=== PATIENT | male | born 1955 | race Native Hawaiian/Other Pacific Islander ===

== ENCOUNTER 2016-03-23 13:35 | Emergency (ER) | payer BC, OTHER ==
[2016-03-23 13:59] VITALS: TEMP 97.3
--- NOTE | 2016-03-23 14:20 | ED.PDOC ---
History of Present Illness - General Chief Complaint: Cardiovascular Problem Stated Complaint: elevated BP Time Seen by Provider: 03/23/16 14:19 Source: patient, RN notes reviewed, Vital Signs reviewed, family - Exam Limitations: no limitations - History of Present Illness Initial Comments: Mr. Brianne Vale 60 y/o male with history of high blood pressure seen today because of persistently elevated blood pressure for one week has headache ( tightness) but no chest pain blurry vision had pituitary tumor removed in 2014, history of chf with pacemaker placement in 2010 stating had EF-20%but recent echo-45%. Timing/Duration: other - one week had quit taking lasix for almost a month Severity: moderate Improving Factors: nothing Worsening Factors: nothing Associated Symptoms: shortness of breath, other - dizziness Allergies/Adverse Reactions: Allergies NO KNOWN ALLERGY Allergy (Verified 03/23/16 14:00) Home Medications: Ambulatory Orders Carvedilol 25 mg PO BID 03/23/16 Furosemide 40 mg PO DAILY PRN 03/23/16 Losartan Potassium 50 mg PO DAILY 03/23/16 Review of Systems - Review of Systems Constitutional: States: no symptoms reported EENTM: States: no symptoms reported Respiratory: States: short of breath Cardiology: States: no symptoms reported Gastrointestinal/Abdominal: States: no symptoms reported Genitourinary: States: no symptoms reported Musculoskeletal: States: no symptoms reported Skin: States: no symptoms reported Neurological: States: see HPI Endocrine: States: no symptoms reported Hematologic/Lymphatic: States: no symptoms reported Past Medical History (General) - Patient Medical History Hx Stroke: No Hx Congestive Heart Failure: Yes Hx Hypertension: Yes Hx Renal Disease: No - Hx kidney stones x 3 Surgical History: cholecystectomy Other Surgeries:: pacamaker placement,pituitary tumor excision-2014 - Vaccination History Hx Influenza Vaccination: No Hx Pneumococcal Vaccination: No - Social History Hx Tobacco Use: Yes - Quit - Activities of Daily Living Patient Lives Alone: No - family Grooming Ability: Independent Eating (Feeding) Ability: Independent Toileting Ability: Independent Family Medical History - Family History Father Living Status: Age at (years of age): 41 Cause of : ALS Physical Exam - Physical Exam General Appearance: Alert, No apparent distress Eye Exam: bilateral normal Ears, Nose, Throat: hearing grossly normal, normal ENT inspection, normal pharynx Neck: non-tender, full range of motion, supple, normal inspection Respiratory: chest non-tender, lungs clear, normal breath sounds, no respiratory distress Cardiovascular/Chest: normal peripheral pulses, regular rate, rhythm, no edema, no gallop Peripheral Pulses: radial,right: 2+, radial,left: 2+ Gastrointestinal/Abdominal: normal bowel sounds, non tender, soft, no organomegaly, no pulsatile mass Back Exam: normal inspection, no CVA tenderness, no vertebral tenderness Extremity: normal range of motion, non-tender, normal inspection, no pedal edema Neurologic: no motor/sensory deficits, alert, normal mood/affect, oriented x 3 Skin Exam: normal color, warm/dry Lymphatic: no adenopathy Progress - Results/Orders Results/Orders: 03/23/16 14:20 URINALYSIS Stat 03/23/16 14:30 Bumetanide Inj [Bumex Injection] 1 mg IV DAILY 03/23/16 14:39 B-TYPE NATRIURETIC PEPTIDE/BNP Stat CARDIAC PANEL,ER Stat HEPATIC FUNCTION PANEL Stat Laboratory Results WBC 8.2 K/mm3 (4.8-10.8) 03/23/16 14:39 RBC 5.73 M/mm3 (4.70-6.10) 03/23/16 14:39 Hgb 16.7 gm/dL (14.0-18.0) 03/23/16 14:39 Hct 50.4 % (42.0-52.0) 03/23/16 14:39 MCV 88.1 fl (80.0-94.0) 03/23/16 14:39 MCH 29.2 pg (27.0-31.0) 03/23/16 14:39 MCHC 33.2 g/dL (33.0-37.0) 03/23/16 14:39 RDW 15.3 % (11.5-14.5) H 03/23/16 14:39 Plt Count 134 K/mm3 (130-400) 03/23/16 14:39 MPV 9.9 fl (7.40-10.4) 03/23/16 14:39 Absolute Neuts (auto) 5.20 K/uL (1.8-6.8) 03/23/16 14:39 Absolute Lymphs (auto) 2.00 K/uL (1.0-3.4) 03/23/16 14:39 Absolute Monos (auto) 0.80 K/uL (0.2-0.8) 03/23/16 14:39 Absolute Eos (auto) 0.10 K/uL (0.0-0.4) 03/23/16 14:39 Absolute Basos (auto) 0.10 K/uL (0.0-0.1) 03/23/16 14:39 Neutrophils % 63.3 % (42.0-78.0) 03/23/16 14:39 Lymphocytes % 25.0 % (20.0-50.0) 03/23/16 14:39 Monocytes % 9.4 % (2.0-9.0) H 03/23/16 14:39 Eosinophils % 1.5 % (1.0-5.0) 03/23/16 14:39 Basophils % 0.8 % (0.0-2.0) 03/23/16 14:39 Differential Comment Cancelled 03/23/16 14:39 RBC Morphology Cancelled 03/23/16 14:39 PT 11.5 SECONDS (9.4-12.5) 03/23/16 14:39 INR 1.020 03/23/16 14:39 PTT (SP) 34.1 SECONDS (25.1-36.5) 03/23/16 14:39 Sodium 139 mmol/L (135-145) 03/23/16 14:39 Potassium 4.0 mmol/L (3.6-5.0) 03/23/16 14:39 Chloride 104 mmol/L (101-111) 03/23/16 14:39 Carbon Dioxide 29 mmol/L (21-31) 03/23/16 14:39 Anion Gap 10.0 (12-18) L 03/23/16 14:39 BUN 13 mg/dL (7-18) 03/23/16 14:39 Creatinine 0.97 mg/dL (0.6-1.3) 03/23/16 14:39 BUN/Creatinine Ratio 13.4 (10-20) 03/23/16 14:39 Random Glucose 100 mg/dL (70-105) 03/23/16 14:39 Serum Osmolality 277.7 mOsm/L (275-295) 03/23/16 14:39 Calcium 9.4 mg/dL (8.4-10.2) 03/23/16 14:39 Magnesium 1.9 mg/dL (1.8-2.5) 03/23/16 14:39 Total Bilirubin 0.8 mg/dL (0.2-1.0) 03/23/16 14:39 AST 20 IU/L (10-42) 03/23/16 14:39 ALT 25 IU/L (10-60) 03/23/16 14:39 Alkaline Phosphatase 50 IU/L (42-121) 03/23/16 14:39 Creatine Kinase 68 IU/L (38-174) 03/23/16 14:39 CK-MB (CK-2) 1.5 ng/mL (0.0-4.4) 03/23/16 14:39 CK-MB (CK-2) % Not Reportable 03/23/16 14:39 Troponin I < 0.02 ng/mL (0.01-0.05) 03/23/16 14:39 B-Natriuretic Peptide 131.0 pg/ml (0-100) H 03/23/16 14:39 Serum Total Protein 7.1 gm/dL (6.4-8.2) 03/23/16 14:39 Albumin 4.1 g/dl (3.2-5.5) 03/23/16 14:39 Globulin Cancelled 03/23/16 14:39 Albumin/Globulin Ratio Cancelled 03/23/16 14:39 Vital Signs Temp 97.3 F L 03/23/16 13:50 Pulse 69 03/23/16 13:50 Resp 18 03/23/16 13:50 BP 157/102 03/23/16 13:50 Pulse Ox 97 03/23/16 13:50 Intake & Output 03/22/16 03/23/16 03/23/16 18:59 06:59 18:59 Weight 230 lb 03/23/16 13:50 Temperature 97.3 F L Pulse Rate [ 69 Left] Respiratory 18 Rate Blood Pressure 157/102 [Left Arm] O2 Sat by Pulse 97 Oximetry Vital Signs 03/23/16 13:50 Temperature 97.3 F L Pulse Rate [ 69 Left] Respiratory 18 Rate Blood Pressure 157/102 [Left Arm] O2 Sat by Pulse 97 Oximetry chest x ray-borderline cardiomegaly no heart failure - EKG/XRAY/CT EKG: nonspecific ST T wave Chg Comments: pacemaker rhythm Departure - Departure Clinical Impression: Poor high blood pressure control, History of chronic CHF, Cardiomyopathy due to hypertension, with heart failure Time of Disposition: 16:22 Disposition: Discharge to Home or Self Care Condition: Good Departure Forms: ED Discharge - Pt. Copy, Patient Portal Self Enrollment Referrals: Donald Franz MD [Primary Care Provider] - 1-2 Weeks Home Medications: Ambulatory Orders Carvedilol 25 mg PO BID 03/23/16 Furosemide 40 mg PO DAILY PRN 03/23/16 Losartan Potassium 50 mg PO DAILY 03/23/16 Additional Instructions: Increase dose of losartan 100 mg at bedtime;RETURN TO EMERGENCY ROOM NEEDED.Need to continue with lasix as directed;Keep appointment with primary md next week.
[2016-03-23] MEDS ORDERED: BUMETANIDE 0.25 MG/ML VIAL IV SCH (14:30)
--- NOTE | 2016-03-23 15:04 | RAD ---
EXAM DESCRIPTION: XR CHEST 1 VIEW CLINICAL HISTORY: sob COMPARISON: None available FINDINGS: A multi lead cardiac pacemaker is present. The heart is at the upper limits of normal size for AP technique. Mediastinal contours are otherwise unremarkable period there is mild elevation of the left hemidiaphragm, questionable acuity period no airspace consolidation or pleural effusion period There is no pneumothorax or acute fracture. IMPRESSION: Cardiac pacemaker and borderline cardiomegaly without failure or other acute intrathoracic abnormality. Mild elevation of the left hemidiaphragm, nonspecific and of uncertain acuity. The patient has an older chest radiograph, comparison would be helpful. Alternatively, chest CT could be performed for further evaluation. Electronically signed by: Bhavesh Burdick DO 03/23/2016 15:03
[2016-03-23 16:48] VITALS: BP 172/97; O2SAT 97
== END 2016-03-23 16:30 | disposition home or self-care (01) ==
LOC: ER 13:35
DX: I11.0 Hypertensive heart disease with heart failure (principal); I50.9 Heart failure, unspecified; Z95.0 Presence of cardiac pacemaker; Z87.891 Personal history of nicotine dependence; Z79.899 Other long term (current) drug therapy
CPT/HCPCS: 36415; 71010; 80048; 80076; 82550; 82553; 83880; 84484; 85025; 85610; 85730; 93005; J3490

== ENCOUNTER → 2016-03-29 | Outpatient (CLI) | payer BC | END | disposition home or self-care (01) | LOC: GMAM 11:30 | PROVIDERS: ATTEND Family Medicine | DX: R35.0 Frequency of micturition (principal) ==

== ENCOUNTER → 2016-10-13 | Outpatient (CLI) | payer BC | END | disposition home or self-care (01) | LOC: GMA 10:34 | PROVIDERS: ATTEND Physician Assistant | DX: R22.1 Localized swelling, mass and lump, neck (principal) ==

== ENCOUNTER 2016-11-10 05:49 | Observation (INO) | payer BC ==
[2016-11-10] MEDS ORDERED: ASPIRIN TABLET 325 MG TAB PO ONE (06:16)
[2016-11-10] MEDS ORDERED: SODIUM CHLORIDE 0.9% 100ML 100 ML IVPB ONE (06:17)
[2016-11-10] MEDS ORDERED: diltiaZEM DRIP 125 MG/25 ML VIAL IVPB ONE ×2 (06:17→06:19)
[2016-11-10] MEDS ORDERED: niCARdipine HCL 2.5 MG/ML AMP IVPB ONE (06:17)
[2016-11-10] MEDS ORDERED: diltiaZEM DRIP 125 MG in SODIUM CHLORIDE 0.9% 100ML 100 ML IVPB SCH (06:20)
[2016-11-10] MEDS ORDERED: CARVEDILOL 12.5 MG TAB PO ONE (06:20)
[2016-11-10] MEDS ORDERED: ETOMIDATE INJECTION 2 MG/ML 20ML VIAL IV ONE ×2 (06:47→06:52)
--- NOTE | 2016-11-10 06:56 | RAD ---
EXAM: Single view chest. INDICATION: Shortness of breath. COMPARISON: Chest x-ray: 03/23/2016. FINDINGS: Cardiac silhouette: Enlarged with a left chest wall pacemaker/AICD in place Tori: Unremarkable. Lobar consolidation: None. Pleural effusion: None. Pneumothorax: None. Other: None. Bones: Unremarkable. Other: None. IMPRESSION: 1. No acute cardiopulmonary process. Electronically signed by: Corbin Gomez MD 11/10/2016 6:54 AM CDT Workstation: [id number]
--- NOTE | 2016-11-10 07:12 | ED.PDOC ---
History of Present Illness - General Chief Complaint: Chest Pain/IL Stated Complaint: nausea, chest pain Time Seen by Provider: 11/10/16 06:06 Source: patient Exam Limitations: no limitations - History of Present Illness Initial Comments: the patient is a 61-year-old male presenting to the emergency room secondary to waking up this morning and feeling dizzy along with having palpitations in his chest. He has not had this sensation before. He did have some very mild chest pain intermittently. He is not having chest pain upon arrival here. He is pale and mildly diaphoretic. Telemetry monitoring shows atrial fibrillation with a rate ranging from 125-148 bpm. His pulse however ranges from 70-110. He is mildly hypotensive with systolics ranging from 90- 105. He reports that he took in extra caffeine and sugar last night for some reason. He denies any drug use. No syncope but he did have near syncope with the event this morning. It started when he got up to go use the bathroom. He does take Coreg on a twice-daily basis. He does apparently have some form of a pituitary tumor which she takes medications for. He does have a pacemaker that appears to sense a truly and paced ventricularly. EKG in comparison to previous EKG from 7 months ago shows a wider QRS complex. He does still appear to be a ventricularly paced beat according to what looks like pacers spikes and anterior and inferior leads. Difficult to assess otherwise. There is definitely left axis deviation. Timing/Duration: 1-3 hours Severity: severe Improving Factors: immobilization, rest Worsening Factors: movement Associated Symptoms: chest pain, loss of appetite, malaise, shortness of breath , weakness Allergies/Adverse Reactions: Allergies NO KNOWN ALLERGY Allergy (Verified 03/23/16 14:00) Home Medications: Ambulatory Orders Carvedilol 25 mg PO BID 03/23/16 Furosemide 40 mg PO DAILY PRN 03/23/16 Losartan Potassium 50 mg PO DAILY 03/23/16 Review of Systems - Review of Systems Constitutional: States: diaphoresis, malaise, weakness EENTM: States: blurred vision - rimarily when he goes to stand up Respiratory: States: short of breath - with any activity Cardiology: States: palpitations, syncope - ear syncope but he has not passed out Gastrointestinal/Abdominal: States: no symptoms reported Genitourinary: States: no symptoms reported Musculoskeletal: States: no symptoms reported Skin: States: no symptoms reported Neurological: States: anxiety, headache - mild when he goes to stand up, weakness - eneralized with movement Endocrine: States: see HPI All other Systems: No Change from Baseline Past Medical History (General) - Patient Medical History Hx Stroke: No Hx Cardiac Disorders: Yes Hx Congestive Heart Failure: Yes Hx Hypertension: Yes Hx Renal Disease: Yes - Hx kidney stones x 3 Hx Cancer: Yes - pituitary tumor Surgical History: cholecystectomy, pacemaker, other - Vaccination History Hx Influenza Vaccination: No Hx Pneumococcal Vaccination: No - Social History Hx Tobacco Use: Yes - Quit Hx Alcohol Use: No Family Medical History - Family History Father Living Status: Age at (years of age): 41 Cause of : ALS Physical Exam - Physical Exam General Appearance: Alert, Ill Appearing - he is pale and weak. He is diaphoretic. He is anxious. Eye Exam: bilateral normal Ears, Nose, Throat: hearing grossly normal, normal ENT inspection, normal pharynx Neck: full range of motion, supple Respiratory: chest non-tender, lungs clear, normal breath sounds, no respiratory distress, no accessory muscle use Cardiovascular/Chest: no edema, tachycardia, irregularly irregular, other - the patient's actual functional pulse varies significantly. At times the patient has a strong pulse only about 40 bpm with variable thready pulses additionally 50-70 times more per minute Peripheral Pulses: radial,right: 2+, radial,left: 2+, dorsalis pedis,right: 2+, dorsalis pedis,left: 2+, posterior tibialis,right: 2+, posterior tibialis,left: 2+ Gastrointestinal/Abdominal: non tender, soft Rectal Exam: deferred Back Exam: normal inspection, no CVA tenderness Extremity: normal range of motion, non-tender, normal inspection, no pedal edema , normal capillary refill Neurologic: registered nurse ambulatory II-XII nml as tested, no motor/sensory deficits, alert, normal mood/affect, oriented x 3 Skin Exam: diaphoresis, pallor Comments: Vital Signs - 24 hr 11/10/16 11/10/16 06:12 06:33 Temperature 97.9 F Pulse Rate 133 H Pulse Rate [ 133 H left] Respiratory 22 Rate Blood Pressure 115/50 [left] O2 Sat by Pulse 100 100 Oximetry Progress - Progress Progress: 11/10/16 07:14 the patient is a 61-year-old male presenting to the emergency room secondary to feeling of palpitations along with near syncope. This is of short duration of less than 3 hours. The patient has atrial fibrillation which was electrically a rapid ventricular rate but ultimately poor perfusion. we did make an attempt with diltiazem to try and slow down the electrical impulse to improve perfusion with each beat however this ultimately only lead to another 5 point drop in his systolic blood pressure. Decision was made to cardiovert the patient. The patient agreed to this. We had originally planned on waiting until lab work was back to make sure there were no other correctable issues that needed to be dealt with however given his poor perfusion were forced to proceed prior to that. Risks and benefits were explained and the patient did agree to proceed. 10 mg of etomidate was initially given and the patient was shocked with 30 J which failed to cardiovert him. This was followed by a shock at 70 J which also further failed to cardiovert him. 5 more milligrams of etomidate was givenand he was shocked one more time at 150 J which did ultimately cardiovert the patient back into a normal sinus rhythm at a rate of about 70 bpm with a atrial sensed and ventricularly paced beat. respiratory therapy was present. The patient did receive supplemental oxygen during the procedure. He has tolerated the procedure well. Blood pressures have significantly improved. His displayed electrical cardiac activity now matches his pulse. He is feeling better. 11/10/16 08:04 the patient seems to be doing well after cardioversion. I have talked with his ice cream man Dr. lira, who has recommended anticoagulation in the form of xarelto 20 mg by mouth daily at bedtime. As long as he continues to do well, he will follow him up here in a couple of weeks. The patient is to continue his Coreg. The patient will be admitted for the next 24 hours of monitoring to make sure he does not revert to A. fib with RVR. Source of this episode is uncertain at this time. Initial heart enzymes proximally 3 hours after the onset of symptoms are negative. Of note, the patient's creatinine is increased from his baseline. This is possibly related to the hypotension from the arrhythmia. It does need to be monitored. If it does not improve, then medication adjustments may need to be made. Cardizem drip has been discontinued. Aspirin will be discontinued in light of the xarelto. the patient will of course need further repeat cardiac enzymes. Admit for further monitoring and care. critical care time spent on not otherwise billable procedures 40 minutes. 11/10/16 08:08 - Results/Orders Results/Orders: Laboratory Tests 11/10/16 11/10/16 11/10/16 06:05 06:05 06:05 WBC 7.6 RBC 6.02 Hgb 17.9 Hct 52.5 H MCV 87.3 MCH 29.7 MCHC 34.1 RDW 14.4 Plt Count 187 MPV 10.0 Absolute Neuts (auto) 4.30 Absolute Lymphs (auto) 2.60 Absolute Monos (auto) 0.50 Absolute Eos (auto) 0.10 Absolute Basos (auto) 0.10 Neutrophils % 56.0 Lymphocytes % 34.6 Monocytes % 6.9 Eosinophils % 1.1 Basophils % 1.4 PT 10.7 INR 0.950 PTT (SP) 34.3 D-Dimer, Quantitative < 200 Sodium 139 Potassium 3.8 Chloride 105 Carbon Dioxide 22 Anion Gap 15.8 BUN 18 Creatinine 1.50 H BUN/Creatinine Ratio 12.0 Random Glucose 160 H Serum Osmolality 282.9 Calcium 9.5 Magnesium 2.0 Total Bilirubin 1.6 H AST 23 ALT 31 Alkaline Phosphatase 54 Creatine Kinase 78 CK-MB (CK-2) 2.1 CK-MB (CK-2) % Not Reportable Troponin I 0.02 B-Natriuretic Peptide 95.8 Serum Total Protein 6.9 Albumin 4.3 Globulin 2.6 Albumin/Globulin Ratio 1.7 TSH 6.14 H chest x-ray today shows cardiomegaly but no other evidence of any acute pathology. Initial EKG shows A. fib with RVR with widening of the QRS complex and what appears to be a paced ventricular beats is likely atrial sensed. Difficult to assess otherwise. Of note the rate on the EKG is 141 bpm but his pulse at that time was around 100. Initial EKG after cardioversion shows some inverted T waves in lead 3 as well as V1. There is also deep Q waves in lead 2 as well as Q waves in aVF. These have not been noted before. This is now in normal sinus rhythm with subsequent ventricular pacing. Repeat EKG 30 minutes after this one shows a correction of abnormalities in leads 2 and aVF. This EKG looks much more consistent with the EKG from March 2016. There does however possibly appear to show a right bundle branch block that was not present prior. Departure - Departure Clinical Impression: New onset a-fib Hypotension Qualifiers: Hypotension type: unspecified hypotension type Qualified Code(s): I95.9 - Hypotension, unspecified Disposition: Admit Patient Referrals: Donald Franz MD [Primary Care Provider] - 1-2 Weeks Home Medications: Ambulatory Orders Carvedilol 25 mg PO BID 03/23/16 Furosemide 40 mg PO DAILY PRN 03/23/16 Losartan Potassium 50 mg PO DAILY 03/23/16 Decision To Admit - Decistion To Admit Decision to Admit Reason: Medical Nature Decision to Admit Date: 11/10/16 Decision to Admit Time: 08:09
[2016-11-10] MEDS ORDERED: SODIUM CHLORIDE 0.9% 1000ML 500 ML IVS ONE (07:23)
[2016-11-10] MEDS ORDERED: RIVAROXABAN 10 MG TAB PO ONE (08:01)
--- NOTE | 2016-11-10 09:05 | HP ---
SUPERVISING PHYSICIAN: Donald Franz M.D. CHIEF COMPLAINT: Chest pain, dizziness and nausea. HISTORY OF PRESENT ILLNESS: Mr. Vale is a 61 year-old male patient that presented to the Emergency Room secondary to being awakened this morning and feeling dizzy along with some palpitations in his chest. He has noted that he has had some very mild chest pains intermittently in the past and upon arrival noted he was not having any chest pains. He was noted to be mildly pale and diaphoretic, and when placed on telemetry showed that he has atrial fibrillation with a ventricular rate between 125 and 148. He was also found to be mildly hypotensive with a systolic ranging from 90 to 105. He denied any syncopal episodes or presyncopal episodes with the onset of the chest pains. He said it started when he got up to go to the bathroom this morning. He does take Coreg and he has a pacemaker defibrillator in place. His EKG on arrival showed that he was in atrial fibrillation. Given the new onset initially he was placed on a Cardizem drip without any results, therefore given that he was hypotensive and unstable he agreed to cardioversion electrically which was performed by Chula Ruano. physician. He received 3 separate shocks, one at 30 joules, 70 joules and then finally at 150 joules after he was given 5 mg of Etomidate. He did convert into a normal sinus rhythm at a rate of 70 which was ventricularly paced. The patient was then placed in observation for continued cardiac monitoring and monitoring of cardiac serial enzymes. Initial cardiac enzymes were negative for acute changes with troponin being 0.02. He did have an elevated TSH at 6.14, otherwise other laboratory values were unremarkable. As noted on the comparison of EKG after cardioversion that his EKG looked consistent with EKG compared to 2017 in March, although it appeared he has developed a right bundle branch block. The patient was placed in Observation in stable condition. PAST MEDICAL HISTORY: 1. Congestive heart failure diagnosed in 2010 with last echocardiogram in September 2015 showing an ejection fraction of 45%, etiology nonischemic cardiomyopathy. 2. Hypertension. 3. Pituitary tumor removed in 2014 after being treated medically. 4. Multiple kidney stones. PAST SURGICAL HISTORY: 1. Cholecystectomy in 2009. 2. Pituitary tumor removed in 2014. 3. Pacemaker placement in 2010. CURRENT MEDICATIONS: 1. Arimidex 1 mg daily. 2. Vitamin D3 2,000 units daily. 3. Multivitamin with minerals 1 tablet daily. 4. Entresto 49/51 mg 1 tablet at bedtime. 5. Cabergoline 0.5 mg Monday, Monday and Monday at bedtime and then again 1 mg , Monday and Monday at bedtime. 6. Carvedilol 25 mg twice daily. ALLERGIES: NO KNOWN DRUG ALLERGIES. FAMILY HISTORY: Positive for ALS. Father at age 41 secondary to complications. SOCIAL HISTORY: The patient is a retired real estate financial analyst and currently lives at [facility] with his . He does have a history of smoking approximately 1/2 pack a day, but quit in 2014. He also has been using smokeless tobacco. He denies any alcohol or illicit drug use. REVIEW OF SYSTEMS: CONSTITUTIONAL: Prior to admission to the Medical/Surgical floor it was noted he was diaphoretic, general malaise and weakness. HEENT: Noted some blurred vision while he was having a rapid heart rate, mainly noted when standing. RESPIRATORY: As noted in history of present illness, some shortness of breath with a history of congestive heart failure. CARDIOVASCULAR: Palpitations and near syncopal episode as noted in History of Present Illness, but no true syncopal episodes noted. GASTROINTESTINAL: No diarrhea, constipation, abdominal pains, nausea or vomiting. NEUROLOGIC: Notes he gets a headache sometimes when he stands up. Generalized weakness with movement, most recently with the rapid heart rate. He does have a history of some anxiety and some headaches. ENDOCRINE: As noted in the History of Present Illness, previous pituitary tumor removal. PHYSICAL EXAMINATION: VITAL SIGNS: Initially in the Emergency Room he was showing to be in atrial fibrillation on the monitor with a heart rate of 133, post conversion and admission to the Medical/Surgical floor heart rate was in the 70s. Initially his blood pressure prior to cardioversion was somewhat hypotensive with the lowest noted to be 84/33, at time of admission to the Medical/Surgical floor blood pressure was 108/57. He was satting 97% on room air with respirations of 16. He was afebrile. Temperature was 97.9. GENERAL: On admission to the Medical/Surgical floor, the patient appeared to be in no acute distress, alert, resting comfortably. HEENT: Tympanic membranes are clear bilaterally. Oropharynx was pink and moist without any lesions. NECK: Supple, non-tender with full range of motion. No jugular venous distention. CHEST: Lungs were clear to auscultation bilaterally without any rhonchi, wheezing or rales. CARDIOVASCULAR: Regular rate and rhythm with a paced rhythm on monitor noted with no gallops or rubs or murmurs noted. ABDOMEN: Soft, non-tender with positive bowel sounds. EXTREMITIES: No clubbing, cyanosis or edema. NEUROLOGIC: He is alert and oriented times three. Facial features were symmetrical. Extraocular movements are within normal limits. Cranial nerves II -XII are grossly intact. SKIN: Dry and pink. LABORATORY: White count on admission showed to be within normal limits with white count of 7.6, hemoglobin 17.9, hematocrit 52.5. PT, PTT and D-dimer were all normal. Chemistries showed normal electrolytes with potassium 3.8, magnesium was normal at 2.0, creatinine was slightly elevated at 1.5, BUN was normal at 18. Initial cardiac enzymes showed troponin less than 0.02. Liver functions all showed to be within normal limits. Toxicology screen showed Valproic acid was less than 0.1. Urinalysis is pending. RADIOLOGY: Chest x-ray in the Emergency Department prior to admission on a single view chest per radiology interpretation showed no acute cardiopulmonary processes noted. EKG prior to cardioversion showed atrial fibrillation with rapid ventricular response between 125 and 148, post conversion was showing a paced ventricular rhythm 100% at 70. ASSESSMENT: 1. New onset of atrial fibrillation with rapid ventricular response, unknown etiology requiring electrical cardioversion with the patient converted to a normal sinus rhythm. 2. Hypertension. 3. History of pituitary tumor with removal. 4. History of congestive heart failure, chronic secondary to nonischemic cardiomyopathy with the last ejection fraction noted to be in 09/2015 with an ejection fraction of 45%. 5. Elevated TSH level but no history of hypothyroidism. PLAN: The patient will be placed in Observation tonight for continued cardiac monitoring with serial enzymes every 6 hours. He was started on aspirin in the Emergency Department as well as started on Xarelto after talking to Dr. Valadez, his director software quality assurance. Will continue with Xarelto beginning tomorrow 20 mg daily at bedtime with anticipation of stay being 1 to 2 days possibly discharging tomorrow morning. Once discharged, he willneed close clinical followup with Dr. Franz as well as followup with Dr. Valadez, his director software quality assurance. Until discharge, will continue to follow and treat appropriately. #[id number] [facility]
[2016-11-10] MEDS ORDERED: SODIUM CHLORIDE 0.9% (FLUSH) 10 ML SYG IV PRN (09:43)
[2016-11-10] MEDS ORDERED: ACETAMINOPHEN 325 MG TAB PO PRN (09:43)
[2016-11-10] MEDS ORDERED: NITROGLYCERIN 0.4 MG 25 EA TAB SL PRN (09:43)
[2016-11-10] MEDS ORDERED: MORPHINE SULFATE INJ 10 MG/ML VIAL IV PRN (09:43)
[2016-11-10] MEDS ORDERED: IV SET AND CAP CHANGE INJ INJ SCH (10:00)
[2016-11-10] MEDS ORDERED: CABERGOLINE 0.5 MG PO SCH (13:00)
[2016-11-10] MEDS ORDERED: CABERGOLINE 1 MG PO SCH ×2 (13:00→21:00)
[2016-11-10] MEDS ORDERED: CARVEDILOL 12.5 MG TAB ONE (19:41)
[2016-11-10] MEDS: CARVEDILOL 12.5 MG TAB PO SCH (20:37)
[2016-11-10] MEDS: SODIUM CHLORIDE 0.9% (FLUSH) 10 ML SYG IV SCH (20:38)
[2016-11-10] MEDS ORDERED: SACUBITRIL VALSARTAN PO SCH (21:00)
--- NOTE | 2016-11-10 22:20 | PCM.CORE ---
Physician DVT/VTE - Prophylaxis Currently: Patient already on anticoagulation therapy - Nurse DVT Assessment & Total Each Risk Factor Represents 3 Points: Medical PT with Hx of AR, CHF, Severe infection/sepsis Each Risk Factor Represents 1 Point: Age 41-60, Medical PT at Bed Rest Each Risk Factor is 1 Point: Obesity (BMI >25) DVT Assessment Score: 6 - 5 or more Very High Risk Treatments: Early Ambulation *, Sequential Compression Device
[2016-11-11 06:14] VITALS: O2SAT 97
[2016-11-11] MEDS ORDERED: ASPIRIN TABLET 325 MG TAB ONE (07:53)
[2016-11-11] MEDS ORDERED: CHOLECALCIFEROL 2,000 IU TAB PO ONE (07:53)
[2016-11-11] MEDS ORDERED: MULTIPLE VITAMINS W/ MINERALS 1 EA TAB ONE (07:53)
[2016-11-11] MEDS: SODIUM CHLORIDE 0.9% (FLUSH) 10 ML SYG IV SCH (08:31)
[2016-11-11] MEDS: CARVEDILOL 12.5 MG TAB PO SCH (08:31)
[2016-11-11] MEDS ORDERED: ANASTROZOLE 1 MG PO SCH (09:00)
[2016-11-11] MEDS ORDERED: MULTIPLE VITAMINS W/ MINERALS 1 EA TAB PO SCH (09:00)
[2016-11-11] MEDS ORDERED: ASPIRIN TABLET 325 MG TAB PO SCH (09:00)
[2016-11-11] MEDS ORDERED: ARIMIDEX 1 MG PO SCH (09:00)
[2016-11-11] MEDS ORDERED: CHOLECALCIFEROL 2,000 IU TAB PO SCH (09:00)
[2016-11-11 10:44] VITALS: BP 132/80; TEMP 97.8
[2016-11-11] MEDS ORDERED: RIVAROXABAN 10 MG TAB PO SCH (21:00)
--- NOTE | 2016-11-12 11:17 | DS ---
SUPERVISING PHYSICIAN: Donald Franz MD DISCHARGE DIAGNOSIS: 1. Acute onset of atrial fibrillation with rapid ventricular response, unknown etiology versus PSVT requiring electrocardioversion with the patient converted back to a normal sinus rhythm and paced with internal pacemaker with patient being started on Xarelto. 2. Hypertension. 3. History of pituitary tumor with removal. 4. History of congestive heart failure, chronic secondary to nonischemic cardiomyopathy with the last ejection fraction noted to be in 09/2015 with an ejection fraction of 45%. 5. Elevated TSH level but no history of hypothyroidism, requiring a continued followup and further studies and medical management. 6. Elevated troponin felt to be secondary to acute cardioversion and acute stress event secondary to the atrial fibrillation/rapid ventricular response/PSVT with troponin returning to normal baselines prior to discharge with patient having no reported chest pains and no changes in EKG. HISTORY OF PRESENT ILLNESS: Mr. Vale is a 61 year-old male patient who initially presented to the Emergency Room secondary to being awakened the morning of admission feeling dizzy with some palpitations in his chest. He noted that he had had some very mild chest pains intermittently in the past and upon arrival noted he was not really having any chest pains. He was noted to be mildly pale and diaphoretic and when placed on telemetry showed that he was in atrial fibrillation rhythm with a ventricular rate of125 to 148. He was also found to be mildly hypotensive with a systolic pressure ranging from 90 to 105. He denied any presyncopal episodes with the onset of the chest pains. He said it started when he got up to go to the bathroom on the morning of admission. He does take Coreg and has a pacemaker defibrillator in place. His EKG on arrival showed he was in atrial fibrillation. Given the new onset, initially he was placed on a Cardizem drip without any improvement in his rate, therefore given that he was hypotensive and symptomatic and unstable, he agreed to cardioversion electrically which was performed by Chula uRano. physician. He received 3 separate shocks, one at 30 joules, 70 joules and then finally at 150 joules after he was given adequate sedation with 5 mg of Etomidate. He did convert into a normal sinus rhythm at a rate of 70 which was then ventricularly paced. The patient was then placed in observation in the Emergency Room initially for cardiac monitoring and continued monitoring with serial enzymes. Initially, his cardiac enzymes were negative for acute changes with troponin being 0.02. He did have an elevated TSH at 6.14, otherwise all other laboratory values were unremarkable. As noted on the comparison of EKG after cardioversion that his EKG looked consistent with EKG compared to 2017 in March, although it did appear he had developed a right bundle branch block, however he was ventricularly paced. Dr. Franz, Emergency Room physician, felt with Dr. Valadez , his reproduction machine loader who recommended that if the patient was stable and already converted, he continue with Coreg, aspirin and start on Xarelto and be placed in observation and if stable discharge to have have followup in the next week in the clinic. The patient then was placed in observation in stable condition. LABORATORY: CBC on admission showed to be within normal limits as well as at discharge with a white count of 7.3, differential within normal limits. Coag studies showed PT/PTT and D-dimer all within normal limits. Chemistries: Electrolytes were all within normal limits on admission including magnesium which was 2.1. He did have a slightly elevated T-bili of 1.6, initial cardiac enzymes were 0.02, BNP 95.8. He did have an elevation of his troponin up to 0.09 six hours post cardioversion and then six hours post second set was again at 0.09, however, on the morning of discharge his troponin normalized at 0.05. TSH was 6.14, cholesterol panel was all within normal limits. RADIOLOGY: Chest x-ray in the Emergency Department prior to admission showed no acute cardiopulmonary process. HOSPITAL COURSE: Mr. Vale was admitted as noted in the history of present illness above for rapid ventricular response secondary to either atrial fibrillation or PSVT. He required cardioversion after he did not respond to Cardizem initially. He converted to a normal sinus rhythm that was paced. He was placed on the medical/surgical floor in stable condition for continued cardiac monitoring. He had no reoccurrence of any abnormal rhythms. He remained in a paced rhythm through the entire hospitalization, had no chest pains and was clinically stable. It was felt he was well enough to be discharged. He was to continue with treatment in an outpatient setting. He was started on Xarelto initially as well as aspirin and was already on a beta jung. He was in stable condition on the morning of discharge and was to continue with cardiac monitoring with an event monitor to be arranged at time of discharge. PLAN: The patient is discharged on 11/11/16 to have close clinical followup with Dr. Franz as scheduled.in the coming week as well as cariology followup with Dr. Valadez. He was to resume his home medications as prior to hospitalization and start new medications as directed. He is to return to the hospital should he have any concerning symptoms. He did have an elevated TSH that was noted and after talking to Dr. Franz, this will be continued with followup in the clinic with additional laboratory studies prior to starting his medications. He will also be started on cardiac event monitor for 30 days with results to be sent to Dr. Franz as well as Dr. Valadez. Discharge diet was low fat, low cholesterol. Activities as tolerated. New prescriptions as discharge included: 1. Nitrostat 1 sublingual every 5 minutes x3 if needed for chest pains, one bottle. 2. Aspirin 81 mg daily. 3. Xarelto 20 mg tablet daily, #30. Condition on discharge was stable and improved. [facility][id number] [facility]
[2016-11-14] MEDS ORDERED: CABERGOLINE 0.5 MG PO SCH (21:00)
== END 2016-11-11 11:00 | disposition home or self-care (01) ==
LOC: ER 05:49 → MS 09:04
PROVIDERS: ADMIT Nurse Practitioner Family; ATTEND Nurse Practitioner Family
DX: I48.91 Unspecified atrial fibrillation (principal); I95.9 Hypotension, unspecified; I11.0 Hypertensive heart disease with heart failure; I50.9 Heart failure, unspecified; I42.8 Other cardiomyopathies; R94.6 Abnormal results of thyroid function studies; R79.89 Other specified abnormal findings of blood chemistry; F17.290 Nicotine dependence, other tobacco product, uncomplicated; Z95.0 Presence of cardiac pacemaker; Z79.899 Other long term (current) drug therapy
CPT/HCPCS: 36415 ×6; 71010; 80048; 80053; 80061; 80164; 80202; 82550 ×4; 82553 ×4; 83735; 83880; 84443; 84484 ×4; 85025 ×2; 85379; 85610; 85730; 92960; 93005 ×5; 94760 ×2; 96374; 99285; G0378; J7030; J7050

== ENCOUNTER → 2017-03-14 | Outpatient (CLI) | payer BC, OTHER ==
--- NOTE | 2017-03-15 16:42 | CT ---
EXAM DESCRIPTION: Head w/wo Contrast: Computed tomography. CLINICAL HISTORY: INVASIVE PROLACTINOMA COMPARISON: None. TECHNIQUE: Spiral -axial scans through the head and brain at 2.5 mm intervals, without and with nonionic IV contrast. Coronal and sagittal 2.0 mm reconstructions. 1 mm coronal and sagittal scans through the sella turcica and pituitary gland after IV contrast at 30 seconds and 3 minutes. No adverse reactions. Total Exam DLP: 2579.92 mGy-cm. This exam was performed according to our departmental CT dose-optimization program which includes automated exposure control, adjustment of the mA and/or kV according to patient size and/or use of iterative reconstruction technique; to reduce radiation dose to as low as reasonably achievable (ALARA). FINDINGS: Inhomogeneously enhancing pituitary gland with lobulated contour. The anterior aspect of the gland is expanding anteriorly and laterally, and has breached the bony wall with the superior right sphenoid air cell. There is also expansion of the pituitary gland posteriorly and laterally to the left extending above the pituitary fossa and encroaching on the left cavernous sinus and abutting the left ICA. The ICA is narrowed, possibly compressed, between the enlarged left pituitary and the left anterior clinoid process. There may be minimal erosion of the left posterior clinoid process in the left clivus abutting the posterior left pituitary fossa. The left side of the gland is also expanding superiorly almost reaching the A1 segment of the left ANANDA but not abutting the left side of the optic chiasm. There is also minimal contrast in the left A1 segment from the bifurcation of the ICA to the anterior communicating artery. Flow in the proximal bilateral MCA vessels appear symmetric. No hemorrhage, intra-axial or extra-axial. No mass-effect and no midline shift. Normal contrast enhancement. Normal ventura-white matter differentiation. No abnormal radiodense material in the brain parenchyma. Vascular calcifications anterior circulation; physiologic calcifications in the pineal gland and choroid plexus. No effacement or displacement of the ventricles, CSF spaces, or subdural spaces. The ventricles and the extra-axial spaces and cisterns are minimally prominent for patient's age especially at the bases of the cerebellar hemispheres bilaterally. Prominent cisterna magna. Normal contrast enhancement. No extra axial fluid collection or hemorrhage. No gross abnormalities of the bony calvarium. IMPRESSION: 1. No hemorrhage. No mass effect or midline shift.. Normal contrast enhancement of the brain. Prominent ventricles and extra-axial CSF spaces and cisterns for patient's age, particularly around the posterior fossa. 2. Expanding mass in the pituitary gland, with right anterior gland eroding through the roof of the right sphenoid air cell. Expanding left side of the gland superiorly, but not reaching the optic chiasm. The left side of the gland is encroaching on the left cavernous sinus and may be compressing the left intercavernous ICA against the left anterior clinoid process. 3. Decreased contrast flow in the A1 segment of the left ANANDA which may be congenital, narrowing of the intracavernous left ICA, or due to atherosclerotic disease. Flow in the bilateral proximal MCA vessels appear symmetric. Electronically signed by: Savage Vinson MD 03/15/2017 4:41 PM [facility]
== END ==
LOC: CT 13:33
PROVIDERS: ATTEND Student in an Organized Health Care Education/Training Program
DX: D35.2 Benign neoplasm of pituitary gland (principal); E23.6 Other disorders of pituitary gland

== ENCOUNTER → 2017-05-09 | Outpatient (CLI) | payer BC | LOC: GMAM 14:31 | PROVIDERS: ATTEND Family Medicine | DX: E23.0 Hypopituitarism (principal); Z12.5 Encounter for screening for malignant neoplasm of prostate ==

== ENCOUNTER 2017-05-22 17:09 | Inpatient (IN) | payer BC ==
[2017-05-22] MEDS ORDERED: IBUPROFEN 200 MG TAB PO ONE (17:47)
--- NOTE | 2017-05-22 18:09 | ED.PDOC ---
History of Present Illness - General Chief Complaint: Chest Pain/KS Stated Complaint: chest pain, sob, and fever Time Seen by Provider: 05/22/17 17:47 Source: patient Exam Limitations: no limitations - History of Present Illness Initial Comments: The patient is a 61-year-old male sent over from clinic secondary to a sensation of some shortness of breath with some fever. Extensive workup has already been done at the clinic including a CBC, CMP, cardiac enzymes with BNP and d-dimer as well as a urinalysis and blood cultures. The patient is started and given a dose of Rocephin. Chest x-ray are even done showing no significant infiltrate. He did have a mildly elevated d-dimer and given a borderline oxygen level his primary care doctor wanted him evaluated for the possibility of a pulmonary embolus which is not unreasonable. The patient gives a somewhat interesting history over the last 3 years of intermittent episodes of acute onset episodes of shortness of breath that usually occur in the evening when lying back. He had one of these episodes on Monday and has had some persistent shortness of breath since that time. He is not having any chest pain. He does feel short of breath though his oxygen levels range from 92-94% on room air. He did however note a fever yesterday of 101 and here today upon his arrival it is 103. He is scheduled to have a cardiac catheterization with his vacuum bottle assembler in 2 days. Blood cultures have reportedly been done with his primary care doctor. Telemetry monitoring shows a normal sinus rhythm to mild sinus tachycardia. An EKG shows a atrial sensed and ventricularly paced sinus rhythm. There is poor R-wave progression in anterior leads and likely a left bundle branch block. Difficult to assess otherwise. Heart rate is 98 bpm. the patient has felt flushed and achy. No sore throat or runny nose. No cough. No nausea vomiting or diarrhea. No skin lesions. No difficulty with urination. No altered mental status or headache. the patient has apparently had a pituitary tumor in the past that has been resected. Records indicate that was done in 2014. The patient is in no obvious distress he is quite jovially chatting on the phone. Timing/Duration: unsure Severity: moderate Improving Factors: nothing Worsening Factors: nothing Associated Symptoms: fever/chills, malaise, shortness of breath Allergies/Adverse Reactions: Allergies NO KNOWN ALLERGY Allergy (Verified 05/22/17 17:34) Home Medications: Ambulatory Orders Cabergoline 0.5 mg PO .BUTCHE@BEDTIME 11/10/16 Nitroglycerin 0.4 mg Tab [Nitrostat] 1 ea SL Q5MIN PRN #1 bottle 11/11/16 Apixaban [Eliquis] 5 mg PO BID 05/22/17 Atorvastatin Calcium [Lipitor] 20 mg PO DAILY 05/22/17 Carvedilol 12.5 mg PO BID 05/22/17 Sildenafil Citrate (Pulmonary [Sildenafil] 20 mg PO DAILY 05/22/17 Thyroid [Nature-Throid] 65 mg PO DAILY 05/22/17 Valsartan 40 mg PO DAILY 05/22/17 Zolpidem Tartrate [Ambien] 5 mg PO BEDTIME 05/22/17 Review of Systems - Review of Systems Constitutional: States: fever, malaise EENTM: States: no symptoms reported Respiratory: States: short of breath. Denies: cough, stridor, wheezing Cardiology: States: chest pain - mild 2 days ago Gastrointestinal/Abdominal: States: no symptoms reported Genitourinary: States: no symptoms reported Musculoskeletal: States: no symptoms reported Skin: States: no symptoms reported Neurological: States: no symptoms reported Endocrine: States: no symptoms reported All other Systems: No Change from Baseline Past Medical History (General) - Patient Medical History Hx Seizures: No Hx Stroke: No Hx Asthma: No Hx of COPD: No Hx Cardiac Disorders: Yes Hx Congestive Heart Failure: Yes Hx Pacemaker: Yes - pacemaker/defibrillator Hx Hypertension: Yes Hx Diabetes: No Hx Renal Disease: Yes - Hx kidney stones x 3 Hx Cancer: Yes - pituitary tumor Hx MRSA: No - Vaccination History Hx Influenza Vaccination: No Hx Pneumococcal Vaccination: No - Social History Hx Tobacco Use: Yes Hx Alcohol Use: No Hx Substance Use: No Hx Physical Abuse: No Hx Emotional Abuse: No Family Medical History - Family History Father Living Status: Age at (years of age): 41 Cause of : ALS Physical Exam - Physical Exam General Appearance: Alert, Comfortable, No apparent distress Eye Exam: bilateral normal Ears, Nose, Throat: hearing grossly normal, normal ENT inspection, normal pharynx Neck: full range of motion, supple, normal inspection Respiratory: chest non-tender, lungs clear, normal breath sounds, no respiratory distress, no accessory muscle use Cardiovascular/Chest: normal peripheral pulses, regular rate, rhythm, no edema Peripheral Pulses: radial,right: 2+, radial,left: 2+, dorsalis pedis,right: 2+, dorsalis pedis,left: 2+ Gastrointestinal/Abdominal: non tender, soft Rectal Exam: deferred Back Exam: normal inspection, no CVA tenderness, no vertebral tenderness Extremity: normal range of motion, non-tender, normal inspection, no pedal edema Neurologic: product engineering manager II-XII nml as tested, alert, normal mood/affect, oriented x 3 Skin Exam: normal color Comments: Vital Signs - 24 hr 05/22/17 17:15 Temperature 103.3 F H Pulse Rate [ 99 H pulse ox] Respiratory 20 Rate Blood Pressure 160/101 [Left Arm] O2 Sat by Pulse 94 L Oximetry Progress - Progress Progress: 05/22/17 19:13 the patient is 61-year-old male presented to emergency room secondary to fever and shortness of breath. Fever has increased significantly just since the time of his clinic visit. The patient's oxygen levels are borderline without oxygen. He does appear to be developing a left upper lobe pneumonia based on CT scan this does appear to be fairly rapidly progressive. The patient will be admitted at this point in time for observation and treatment of the pneumonia to make sure that he stabilizes. The patient has remained in sinus rhythm on telemetry monitoring. No evidence of pulmonary embolus. His coronary angiogram likely need to be rescheduled from Monday. Blood cultures have been taken at his primary care doctor's office. admit for further appropriate care. - Results/Orders Results/Orders: glucose 124, BUN is 13, creatinine is 0.9, sodium is 140, potassium is 3.9, chloride is 94, bicarbonate is 31, calcium is 9.9, total protein is 7.8, globulin is 3.8, ALT is 31, AST is 32, total bilirubin is 0.8, white blood cell count is 9900, hemoglobin and hematocrit are 12 and 37, platelets are 193, 75% neutrophils, strep screen is negative, rapid flu is negative, urinalysis shows mild dehydration with moderate calcium oxalate crystals.the patient's cardiac enzymes, BNP and d-dimer were not forwarded or received. By report from his primary care doctor his d-dimer was slightly less than 400 and his BNP was slightly greater than 500. Apparently the cardiac enzymes were within normal limits. CT angiogram of the chest shows left upper lobe consolidation consistent with pneumonia. No evidence of pulmonary embolus. Departure - Departure Clinical Impression: Pneumonia Qualifiers: Pneumonia type: due to unspecified organism Laterality: left Lung location: upper lobe of lung Qualified Code(s): J18.1 - Lobar pneumonia, unspecified organism Disposition: Admit Patient Referrals: Donald Franz MD [Primary Care Provider] - 1-2 Weeks Home Medications: Ambulatory Orders Cabergoline 0.5 mg PO .MOTUWE@BEDTIME 11/10/16 Nitroglycerin 0.4 mg Tab [Nitrostat] 1 ea SL Q5MIN PRN #1 bottle 11/11/16 Apixaban [Eliquis] 5 mg PO BID 05/22/17 Atorvastatin Calcium [Lipitor] 20 mg PO DAILY 05/22/17 Carvedilol 12.5 mg PO BID 05/22/17 Sildenafil Citrate (Pulmonary [Sildenafil] 20 mg PO DAILY 05/22/17 Thyroid [Nature-Throid] 65 mg PO DAILY 05/22/17 Valsartan 40 mg PO DAILY 05/22/17 Zolpidem Tartrate [Ambien] 5 mg PO BEDTIME 05/22/17 Decision To Admit - Decistion To Admit Decision to Admit Reason: Medical Nature Decision to Admit Date: 05/22/17 Decision to Admit Time: 19:16
--- NOTE | 2017-05-22 19:05 | CT ---
EXAM: CTA Chest CLINICAL INDICATION: 61-year-old male with complaint of chest pain, shortness of breath, fever. Elevated d-dimer. COMPARISON: None. EXAMINATION: CT angiography of the pulmonary arteries was performed following intravenous administration of contrast. Coronal and bilateral oblique maximum intensity projections (MIPS) were created. This exam was performed according to our departmental dose optimization program which includes use of automated exposure control, adjustment of the mA and/or kV according to patient size and/or use of iterative reconstruction technique. FINDINGS: Chest: Motion limited evaluation through the lungs reveals area of dense airspace opacification of the LEFT upper lobe concerning for consolidation/pneumonia. Trace left-sided pleural effusion. No gross pneumothoraces. The tracheobronchial airways are patent. No significant mediastinal or axillary lymphadenopathy by CT measurement criteria. Heart size top normal. No pericardial effusion. LEFT chest wall pacemaker device incompletely visualized with leads terminating at the level of the RIGHT atrium, intraventricular septum and RIGHT ventricle. Anterior mediastinal suspected collateral vessels of uncertain etiology. Limited evaluation of the upper abdomen shows no acute intra-abdominal abnormalities. Small volume of oral contrast present within the stomach visualized on the level of the fundus to the gastric antrum and proximal duodenum. The osseous structures reveal degenerative change. CT angiography: Suboptimal diagnostic quality of the main pulmonary arteries secondary to suboptimal contrast opacification within the main pulmonary arteries with majority of dense contrast opacification present within the aorta and RIGHT atrium suggesting transient interruption of contrast. No large thrombus is identified present within the main, LEFT and RIGHT main pulmonary arteries. Evaluation beyond the segmental level is severely limited secondary to poor contrast opacification and severe breathing motion artifact. Small distal pulmonary embolism cannot be excluded. IMPRESSION: 1. Suboptimal pulmonary angiography without findings to suggest central pulmonary arterial embolism as detailed above. 2. Motion limited evaluation through the lungs reveals area of dense airspace opacification of the LEFT upper lobe concerning for consolidation/pneumonia. Please correlate with patient clinical findings and follow-up for resolution. Electronically signed by: Francisca Mota MD 05/22/2017 7:03 PM CDT
[2017-05-22] MEDS ORDERED: AZITHROMYCIN IV 500 MG in SODIUM CHLORIDE 0.9% 250ML 250 ML IVPB ONE (19:11)
[2017-05-22] MEDS ORDERED: AZITHROMYCIN IV 500 MG VIAL IVPB ONE (19:12)
[2017-05-22] MEDS ORDERED: SODIUM CHLORIDE 0.9% 250ML 250 ML ONE (19:13)
--- NOTE | 2017-05-22 19:40 | HP ---
SUPERVISING PHYSICIAN: Jun Heredia M.D. CHIEF COMPLAINT: Fever. HISTORY OF PRESENT ILLNESS: This is a 61 year-old male patient who went to his primary care physician's office today for a regular followup appointment. When he was seen there, he was noted to have a fever of 102.4. He was actually initially being seen for a congestive heart failure followup. He states that he had some shortness of breath. He has not had any lower extremity edema. He follows up in [facility] for his cardiac issues with Dr. Valadez. The day before in his appointment he was noted to have a fever in the office. At that point, Dr. Franz sent him over to the Emergency Room. This was after he had some lab work. At the time, his lab work did not show any leukocytosis. Chemistry was remarkable only pretty much for an elevated glucose. In the Emergency Room, he was seen by the E. R. physician and had a CT angiogram of the chest which did rule out a pulmonary embolism, but showed a left upper lobe infiltrate. He continued to have a fever over in the Emergency Room. They did not repeat his labs. On further questioning of the patient, the patient states that for the whole last week he has had some fever and chills. He also had some burning in his chest and at first thought he might be having a heart attack , but then that sensation actually went away. He stated before he has had some shortness of breath but he does have a history of congestive heart failure, so he did not think it was anything significant regarding pneumonia or anything like that. Therefore the E. R. physician had referred the patient for admission to mo. At time of examination, the patient is mildly dyspneic at rest. He does not complain of any pain at this time. He is diminished in the left upper lung field. There are no rales or rhonchi at this time. PAST MEDICAL HISTORY: 1. Nonischemic cardiomyopathy with an ejection fraction of 35%. 2. Paroxysmal atrial fibrillation for which he has required DC cardioversion in the past. 3. Hypertension. 4. Hyperlipidemia. 5. Pituitary macroadenoma. 6. Testosterone insufficiency. PAST SURGICAL HISTORY: 1. Biventricular pacemaker with an ICD. 2. Cholecystectomy. 3. Pituitary tumor removal. CURRENT MEDICATIONS: 1. Carvedilol 12.5 mg p.o. b.i.d. 2. Cabergoline 0.5 mg 1 tab p.o. daily. 3. Sildenafil 20 mg 1 tab p.r.n. prior to sexual activity. 4. Valsartan 40 mg p.o. daily. 5. Atorvastatin 20 mg p.o. daily. 6. Eliquis 5 mg p.o. b.i.d. 7. Nitroglycerin 0.5 mg sublingual every 5 minutes p.r.n. for chest pain. ALLERGIES: NO KNOWN DRUG ALLERGIES. FAMILY HISTORY: Father at age 41 of ALS. Mother had dementia. Brother who is healthy. Sister who is healthy. Two sons which are healthy. SOCIAL HISTORY: The patient does not smoke. He does drink alcohol but not to excess. No illicit drugs. REVIEW OF SYSTEMS: CONSTITUTIONAL: Positive for fever and chills. No recent weight loss or weight gain. HEENT: No headaches, vision changes, ear pain, nasal congestion or throat pain. RESPIRATORY: Positive for some shortness of breath. No cough, hemoptysis or pleuritic chest pain. CARDIOVASCULAR: No chest pain, palpitations or peripheral edema. GASTROINTESTINAL: No nausea, vomiting, diarrhea, constipation or abdominal pain. GENITOURINARY: No dysuria, frequency or flank pain. HEMATOLOGIC: Positive for easy bruising but no transfusion reaction. MUSCULOSKELETAL: No back pain, joint pain or joint swelling or muscle cramps. ENDOCRINE: No polydipsia, polyuria or polyphagia. No heat or cold intolerance. NEUROLOGIC: No seizures, syncope or loss of consciousness. PHYSICAL EXAMINATION: VITAL SIGNS: Blood pressure 125/71, heart rate 102, respiratory rate 22, temperature 98.6 but he did have a fever of 100.3 in the Emergency Room. O2 saturation 97% currently but he was about 90 to 92% in the Emergency Room. GENERAL: Mr. Vale is a 61 year-old male patient in no severe distress currently. HEENT: Normocephalic and atraumatic. Eyes: Pupils are equal and reactive. Nose: With no drainage. Throat: Moist mucosa. NECK: Supple. Midline trachea. No jugular venous distention. CHEST: Symmetrical with equal rise and fall of the chest with inspiration and expiration. Lung sounds are diminished in the left upper lung field but otherwise clear to auscultation bilaterally. CARDIOVASCULAR: The patient has an irregular rate, tachycardic, but a normal S1 and S2. ABDOMEN: Soft, positive bowel sounds. GENITOURINARY: Exam is deferred. EXTREMITIES: Lower extremities have no significant edema. Pulses are 2+. Capillary refill is less than 2 seconds. NEUROLOGIC: The patient is alert and oriented. Moves all extremities. Extraocular movements are intact. LABORATORY: Labs reviewed from the clinic are pretty much unremarkable currently. CT angiogram of the chest has been reviewed and noted with a left upper lobe infiltrate. ASSESSMENT: 1. Possible sepsis secondary to left upper lobe pneumonia. 2. History of congestive heart failure with no acute exacerbation at this time. 3. History of nonischemic cardiomegaly. 4. History of pituitary macroadenoma. PLAN: The patient will be admitted under the pneumonia protocol utilizing Levaquin for IV antibiotics. I will also order bronchial hygiene. I have added some labs, including lactic acid to check for elevation. Also a troponin and BNP have been ordered given his CHF history. I will not utilize any IV fluids at this time unless he proves to reveal a true sepsis picture. Cultures have been ordered and obtained, but the results are still pending obviously at this time. The patient states he has actually contacted his multiple resaw operator, Dr. Valadez, who is supposed to be here in town tomorrow. Will recheck chest x-ray as well as labs tomorrow morning. #[id number] [facility]
[2017-05-22] MEDS ORDERED: SODIUM CHLORIDE 0.9% (FLUSH) 10 ML SYG IV PRN (20:15)
[2017-05-22] MEDS ORDERED: IV SET AND CAP CHANGE INJ INJ SCH (20:30)
[2017-05-22] MEDS ORDERED: NITROGLYCERIN 0.4 MG 25 EA TAB SL PRN (21:09)
[2017-05-22] MEDS ORDERED: CABERGOLINE 0.5 MG PO SCH (21:15)
[2017-05-22] MEDS: levoFLOXacin 750MG IV 750 MG in PREMIX BAG 1 BAG IVPB SCH (21:33)
[2017-05-22] MEDS ORDERED: TEMAZEPAM 15 MG CAP PO PRN (22:52)
--- NOTE | 2017-05-23 07:03 | RAD ---
EXAM DESCRIPTION: Chest,2 Views CLINICAL HISTORY: Pneumonia COMPARISON: November 10, 2016 FINDINGS: A multilead cardiac pacemaker remains in place. The cardiomediastinal silhouette is unremarkable. Alveolar opacity in the mid left lung is obscured by the pacemaker on the frontal view but new from the prior exam. No additional airspace consolidation or pleural effusion is seen. The bronchovascular markings are within normal limits, and the lungs are not hyperinflated. There is no pneumothorax or acute fracture. IMPRESSION: New airspace consolidation in the mid left lung, partially obscured but suspicious for developing pneumonia. Electronically signed by: Bhavesh Burdick MD 05/23/2017 7:02 AM CDT
[2017-05-23] MEDS: CARVEDILOL 12.5 MG TAB PO SCH ×3 (08:33→20:36)
[2017-05-23] MEDS: MULTIPLE VITAMIN 1 EA TAB PO SCH (08:34)
[2017-05-23] MEDS: VALSARTAN 80 MG TAB PO SCH (08:34)
[2017-05-23] MEDS: SODIUM CHLORIDE 0.9% (FLUSH) 10 ML SYG IV SCH ×2 (08:37→20:35)
[2017-05-23] MEDS: APIXABAN 2.5 MG TAB PO SCH ×2 (10:04→20:36)
--- NOTE | 2017-05-23 12:01 | PN ---
SUPERVISING PHYSICIAN: Jun Heredia MD DATE: 05/23/17 SUBJECTIVE: The patient did okay overnight. He does complain of continued shortness of breath at times. Additionally, he had some chills throughout the night and woke up in a pool of sweat. He denies any pain with breathing, but he does have a sensation in the middle of his chest. He would not describe it as pain, but he could feel something. OBJECTIVE: VITAL SIGNS: Blood pressure 137/81. Heart rate 101. Respiratory rate 22. Temperature 98.5. Oxygen saturation 97% on 2 liters via nasal cannula. GENERAL: Mr. Vale is a 61-year-old male patient in no severe distress currently. NEUROLOGIC: Alert and oriented. LUNGS: Left upper lung field is still diminished. There is no wheezing, no rhonchi. CARDIOVASCULAR: Regular rate and rhythm. Normal S1, S2. ABDOMEN: Soft. Positive bowel sounds. EXTREMITIES: Lower extremities 2+ pulses. Capillary refill is less than 2 seconds. RADIOLOGY: Chest x-ray was done and shows the left mid lung consolidation. LABORATORY: Labs reviewed and show WBC 7.0, hemoglobin 12.0, hematocrit 34.9, platelet count 156. Sodium 138, potassium 4.0, chloride 100, CO2 30, BUN 15, creatinine 0.73, glucose 108. Hemoglobin A1c 5.7, calcium 9.1. ASSESSMENT: 1. Left upper lobe pneumonia. 2. Hypoxia. 3. History of congestive heart failure. 4. History of nonischemic cardiomyopathy. PLAN: Due to the fact that the patient is still having some shortness of breath , still having the chills and the sweating and requiring some oxygen at this time, I am going to keep him in the hospital another night. I realize that his white cell count is within normal limits, however, with his history of cardiomyopathy and continued symptoms, I feel like he would benefit from continued hospitalization. His round boner, Dr. Valadez, was contacted and wants to resume his Eliquis. He is not going to have his cardiac catheterization that was originally planned for tomorrow. Once he is discharged , the patient will call Dr. Valadez's office to reschedule this. I will recheck his labs and x-ray tomorrow to ensure there is no interval worsening of either of those. I have discussed this with the patient and he is in agreement at this point. #[id number] [facility]
[2017-05-23] MEDS ORDERED: ACETAMINOPHEN 325 MG TAB ONE (18:39)
[2017-05-23] MEDS: ACETAMINOPHEN 325 MG TAB PO PRN (18:44)
[2017-05-23] MEDS: CABERGOLINE 0.5 MG PO SCH (20:35)
[2017-05-23] MEDS: ATORVASTATIN 20 MG TAB PO SCH (20:36)
[2017-05-23] MEDS: levoFLOXacin 750MG IV 750 MG in PREMIX BAG 1 BAG IVPB SCH (20:36)
[2017-05-23] MEDS: MELATONIN 3 MG TAB PO SCH (20:36)
--- NOTE | 2017-05-24 07:13 | RAD ---
EXAM: Two view chest. INDICATION: Pneumonia. COMPARISON: Chest x-ray: None. FINDINGS: Cardiac silhouette: Enlarged with a left chest wall pacemaker/AICD in place Tori: Unremarkable. Lobar consolidation: Left upper lobe Pleural effusion: None. Pneumothorax: None. Other: None. Bones: Unremarkable. Other: None. IMPRESSION: Left upper lobe pneumonia Electronically signed by: Corbin Gomez MD 05/24/2017 7:11 AM CDT Workstation: [id number]
[2017-05-24] MEDS: CARVEDILOL 12.5 MG TAB PO SCH ×2 (08:38→20:33)
[2017-05-24] MEDS: SODIUM CHLORIDE 0.9% (FLUSH) 10 ML SYG IV SCH ×2 (08:38→20:33)
[2017-05-24] MEDS: APIXABAN 2.5 MG TAB PO SCH ×2 (08:38→20:33)
[2017-05-24] MEDS: MULTIPLE VITAMIN 1 EA TAB PO SCH (08:38)
[2017-05-24] MEDS: VALSARTAN 80 MG TAB PO SCH (08:38)
[2017-05-24] MEDS: LEVALBUTEROL NEBS 0.63 MG/3 ML VIAL NEB SCH ×3 (09:15→23:35)
--- NOTE | 2017-05-24 10:37 | PN ---
SUPERVISING PHYSICIAN: Jun Heredia MD DATE: 05/24/17 SUBJECTIVE: The patient feels okay this morning. No significant shortness of breath. However, yesterday afternoon, he did spike a fever of 101. He was pretty uncomfortable at that time with a little bit of shortness of breath and some sweating. He was given some Tylenol and he did break his fever. He states he slept well after that. OBJECTIVE: VITAL SIGNS: Blood pressure 160/84. Heart rate 77. Respiratory rate 18. Temperature 97.7. Oxygen saturation 98%. GENERAL: Mr. Vale is a 61-year-old male in no acute distress currently. NEUROLOGIC: Alert and oriented. LUNGS: Still a little bit posterior diminishing in left upper lung field, otherwise clear to auscultation bilaterally. CARDIOVASCULAR: Regular rate and rhythm. Normal S1, S2. ABDOMEN: Soft. Positive bowel sounds. EXTREMITIES: Lower extremities with no edema. Pulses 2+. Capillary refill is less than 2 seconds. LABORATORY: White blood cell count 5.2, hemoglobin 11.8, hematocrit 34.3, platelet count 175. Sodium 141, potassium 3.8, chloride 103, CO2 30, BUN 13, creatinine 0.8, glucose 108, calcium 9.2. RADIOLOGY: X-ray still show left upper lobe infiltrate. ASSESSMENT: 1. Left upper lobe pneumonia. 2. Hypoxia. 3. History of congestive heart failure. 4. History of nonischemic cardiomyopathy. PLAN: We will continue current antibiotics. We will monitor another day at this point due to the fact that he did spike a significant fever last night. His labs continue to remain within normal limits. However, given his clinical presentation, I feel like he would benefit from another day in the hospital. So far, his cultures have not grown out any significant bacteria either. We will continue the CPT as well as initiate nebulizers. I am going to utilize Xopenex due to the fact that he does have a history of atrial fibrillation. If he remains stable over the next 24 hours with no spike in fever, there is potential he can go home tomorrow on p.o. antibiotics. [facility][id number] [facility]
[2017-05-24] MEDS: ACETAMINOPHEN 325 MG TAB PO PRN (12:21)
[2017-05-24] MEDS: levoFLOXacin 750MG IV 750 MG in PREMIX BAG 1 BAG IVPB SCH (20:33)
[2017-05-24] MEDS: ATORVASTATIN 20 MG TAB PO SCH (20:33)
[2017-05-24] MEDS: CABERGOLINE 0.5 MG PO SCH (20:33)
[2017-05-24] MEDS: MELATONIN 3 MG TAB PO SCH (20:33)
[2017-05-25] MEDS: LEVALBUTEROL NEBS 0.63 MG/3 ML VIAL NEB SCH (07:11)
[2017-05-25] MEDS: APIXABAN 2.5 MG TAB PO SCH (08:06)
[2017-05-25] MEDS: VALSARTAN 80 MG TAB PO SCH (08:06)
[2017-05-25] MEDS: SODIUM CHLORIDE 0.9% (FLUSH) 10 ML SYG IV SCH (08:06)
[2017-05-25] MEDS: CARVEDILOL 12.5 MG TAB PO SCH (08:06)
[2017-05-25] MEDS: MULTIPLE VITAMIN 1 EA TAB PO SCH (08:06)
[2017-05-25 09:23] VITALS: BP 156/92; TEMP 98.1; O2SAT 96
--- NOTE | 2017-05-26 08:57 | DS ---
SUPERVISING PHYSICIAN: Jun Heredia MD DISCHARGE DIAGNOSIS: 1. Left upper lobe pneumonia, community acquired. 2. Hypoxia, improved, secondary to #1. 3. History of congestive heart failure without current echocardiogram for review. 4. History of nonischemic cardiomyopathy, followed by cardiology pending a heart catheterization. REASON FOR HOSPITALIZATION: Mr. Vale is a 61-year-old male patient of Dr. Franz's who was in for a regular followup appointment. He was noted to have a fever of 102.4. He had actually been seen for a congestive heart failure followup. He states that he had some shortness of breath, but had not had any lower extremity edema. He follows up in [facility] for his cardiac issues with Dr. Valadez. The day before in his appointment he was noted to have a fever in the office. At that point, Dr. Franz sent him over to the Emergency Room for evaluation. Initial lab work did not show any leukocytosis. Chemistry was remarkable. In the Emergency Room, he had a CT angiogram of the chest which did rule out a pulmonary embolism, but showed a left upper lobe infiltrate. He continued to have a fever in the Emergency Room. It was noted he had been having a fever on and off the the last week. He also had some burning in his chest and at first thought he might be having a heart attack, but then that sensation went away. He stated he had been having some shortness of breath on and off, but he does have a history of congestive heart failure, so he did not think it was anything significant regarding pneumonia or anything like that. In the Emergency Room, he was referred for admission for further evaluation and treatment of left upper lobe infiltrate and community acquired pneumonia. He was admitted in stable condition. LABORATORY: Initial white count was 8,000. At discharge, it was 5,200. Hemoglobin and hematocrit were stable and on discharge were 11.8 and 34.3, respectively. RBC indices were within normal limits. Platelet count 175,000. Initially it did show a left shift. This resolved after treatment prior to discharge. Chemistries on admission showed some mild electrolyte abnormalities with low sodium of 133, potassium 3.4, BUN 16, creatinine 0.87. Lactic acid 1.1 , calcium 9.3, BNP slightly elevated at 355, troponin initially 0.02. Electrolytes normalized after treatment and prior to discharge, he had normal electrolytes with potassium 3.8, BUN 13, creatinine 0.8. MICROBIOLOGY: Two sets of blood cultures remained negative after 3 days. RADIOLOGY: In the Emergency Room, he had a chest/thoracic CTA to rule out pulmonary embolism and per radiologic interpretation, pulmonary angiography was suboptimal without findings to suggest central pulmonary arterial embolism. There was note of a dense airspace opacification of the left upper lobe concerning for consolidation/pneumonia. HOSPITAL COURSE: Mr. Vale was admitted as noted above for a left upper lobe. Initial antibiotics included azithromycin and Levaquin. He did have aggressive pulmonary hygiene and progressed well in his treatment course. He was felt on date of discharge to be clinically stable enough to continue with outpatient treatment plan. PLAN: Mr. Vale was discharged on 05/25/17 with instructions to followup with his primary care provider, Dr. Franz. He was to call Dr. Franz's office to schedule appointment next week or sooner if needed. He was to resume his home medications as previously instructed and return to the hospital should he have any concerning symptoms. New prescriptions at discharge included: 1. Xopenex handheld inhaler 1 puff q.6h. as needed, #1 with no refills. 2. Levaquin 500 mg daily for a total of 9 days, treatment course to equal 14 days. No other medications were started at discharge. DIET AT DISCHARGE: Regular diet as tolerated. ACTIVITY: increase as tolerated. CONDITION AT DISCHARGE: Stable and improved. #[id number] [facility]
== END 2017-05-25 09:45 | disposition home or self-care (01) | DRG 194 ==
LOC: ER 17:09 → MS 19:39 → OBSVTOIN 19:39
PROVIDERS: ADMIT Nurse Practitioner; ATTEND Nurse Practitioner Family
DX: J18.9 Pneumonia, unspecified organism (principal); I42.9 Cardiomyopathy, unspecified; R09.02 Hypoxemia; I50.9 Heart failure, unspecified; I48.0 Paroxysmal atrial fibrillation; E78.5 Hyperlipidemia, unspecified; D35.2 Benign neoplasm of pituitary gland; E29.1 Testicular hypofunction; Z79.01 Long term (current) use of anticoagulants; Z95.0 Presence of cardiac pacemaker

== ENCOUNTER → 2017-05-22 | Outpatient (CLI) | payer BC | END | disposition home or self-care (01) | LOC: GMAM 15:40 | PROVIDERS: ATTEND Family Medicine | DX: R50.9 Fever, unspecified (principal); R06.02 Shortness of breath ==

== ENCOUNTER → 2017-05-22 | Outpatient (CLI) | payer BC | END | disposition home or self-care (01) | LOC: GMAM 16:47 | PROVIDERS: ATTEND Family Medicine | DX: R06.02 Shortness of breath (principal) ==

== ENCOUNTER → 2017-05-29 | Outpatient (CLI) | payer BC | LOC: GMAM 14:46 | PROVIDERS: ATTEND Family Medicine | DX: D35.2 Benign neoplasm of pituitary gland (principal); E55.9 Vitamin D deficiency, unspecified ==

== ENCOUNTER → 2017-08-31 | Outpatient (CLI) | payer BC ==
--- NOTE | 2017-09-01 08:17 | CT ---
Study: CT of the Head. Indication: PITUITARY ADENOMA Technique: Axial CT images of the head were acquired with and without intravenous contrast. This exam was performed according to our departmental dose-optimization program, which includes automated exposure control, adjustment of the mA and/or kV according to patient size and/or use of iterative reconstruction technique. Comparison: December 24, 2015. Findings: As noted on the prior examination there is asymmetric prominence of the junction of the left sella turcica and cavernous sinus with ovoid soft tissue lesion measuring up to 15 mm craniocaudal by 11 mm transverse by 15 mm AP. This does not reach the density of the enhanced left internal cavernous artery and demonstrates minimal if any enhancement, however the examination is an arterial phase rather than a venous phase likely prior. It does have mass-effect on the left cavernous ICA which appears narrowed at this site by up to 75% at the region of the clinoid. The lesion does appear to be increased in size compared to the prior but is difficult to confirm given the phase of contrast enhancement. No CT evidence of acute ischemia, acute hemorrhage, midline shift, or extra-axial fluid collection. Ventricles are normal in configuration without hydrocephalus. Incidental note of megacisterna magna. Paranasal sinuses are adequately aerated. Mastoid air cells are adequately aerated. Osseous structures and soft tissues are unremarkable. Impression: Indeterminate mass lesion at the junction of the left sella turcica and left cavernous sinus with adjacent narrowing of the left cavernous internal carotid artery. This narrowing could be due to the mass lesion or secondary to atherosclerosis but cannot be confirmed on this examination. The mass may reflect a macroadenoma, however additional benign and malignant entities could give this appearance as well. A thrombosed aneurysm is also a consideration. This lesion does appear enlarged compared to the prior examination. Baseline neurosurgery consultation advised. Electronically signed by: Hugo Elliott MD 09/01/2017 8:16 AM CDT
== END ==
LOC: EEVIPCON 11:26 → CT 11:26
PROVIDERS: ATTEND Family Medicine
DX: D35.2 Benign neoplasm of pituitary gland (principal); E29.1 Testicular hypofunction

== ENCOUNTER → 2017-09-11 | Outpatient (CLI) | payer BC | LOC: GMAM 10:03 | PROVIDERS: ATTEND Family Medicine | DX: E83.52 Hypercalcemia (principal) ==

== ENCOUNTER 2017-12-06 20:10 | Emergency (ER) | payer BC ==
[2017-12-06] MEDS ORDERED: HYDROcodone 7.5MG/APAP 325MG 1 EA TAB PO ONE ×2 (20:15→21:57)
[2017-12-06] MEDS ORDERED: KETOROLAC TROMETHAMINE INJ 30 MG/ML VIAL IM ONE ×2 (20:15→20:31)
--- NOTE | 2017-12-06 20:17 | ED.PDOC ---
History of Present Illness - General Chief Complaint: Headache Stated Complaint: headache, HX Pituitary tumor Time Seen by Provider: 12/06/17 20:14 Source: patient Exam Limitations: no limitations - History of Present Illness Initial Comments: the patient is a 62-year-old male presenting to the emergency room secondary to a headache that has been present for approximately 7 or 8 hours today. He had a similar headache for 3 or 4 hours a couple of days ago. The patient has a pituitary macroadenoma and is scheduled to have it resected on 21 December. The patient suffered vision loss from the tumor approximately 2 months ago. He is not having any other new neurological symptoms. His headache is not different than it has been before but his blood pressure is up today. Again no new neurological changes at this time. He is due for a CT of the head with IV contrast and possibly CT angiogram on Monday. His neurosurgeon was contacted, and Dr.caetano araujo at [phone], and the patient was discussed with him. He okayed reducing the blood pressure directly. He agreed with the general plan for the patient. Timing/Duration: 4-6 hours Severity: severe Improving Factors: nothing Worsening Factors: nothing Associated Symptoms: denies symptoms, headaches Allergies/Adverse Reactions: Allergies NO KNOWN ALLERGY Allergy (Verified 05/22/17 17:34) Home Medications: Ambulatory Orders Apixaban [Eliquis] 5 mg PO BID 05/22/17 Atorvastatin Calcium [Lipitor] 20 mg PO DAILY 05/22/17 Carvedilol 25 mg PO BID 05/22/17 Multiple Vitamin [Multi Vitamin] 1 tab PO DAILY 05/22/17 Anastrozole [Arimidex] 1 mg PO DAILY 12/06/17 Losartan Potassium 50 mg PO DAILY 12/06/17 Tramadol HCl 50 mg PO Q8HR PRN #20 tab 12/06/17 Zolpidem Tartrate 10 mg PO BEDTIME 12/06/17 Review of Systems - Review of Systems Constitutional: States: no symptoms reported EENTM: States: no symptoms reported - no new Respiratory: States: no symptoms reported Cardiology: States: no symptoms reported Gastrointestinal/Abdominal: States: no symptoms reported Genitourinary: States: no symptoms reported Musculoskeletal: States: no symptoms reported Skin: States: no symptoms reported Neurological: States: headache Endocrine: States: no symptoms reported All other Systems: No Change from Baseline Past Medical History (General) - Patient Medical History Hx Seizures: No Hx Stroke: No Hx Asthma: No Hx of COPD: No Hx Cardiac Disorders: Yes Hx Congestive Heart Failure: Yes Hx Pacemaker: Yes Hx Hypertension: Yes Hx Diabetes: No Hx Renal Disease: Yes - Hx kidney stones x 3 Hx Cancer: Yes - pituitary tumor Hx MRSA: No - Vaccination History Hx Influenza Vaccination: No Hx Pneumococcal Vaccination: No - Social History Hx Tobacco Use: Yes Hx Alcohol Use: No Hx Substance Use: No Hx Physical Abuse: No Hx Emotional Abuse: No Family Medical History - Family History Father Living Status: Age at (years of age): 41 Cause of : ALS Physical Exam - Physical Exam General Appearance: Alert Eye Exam: right normal, left other - decreased visual acuity for the last 2 months Ears, Nose, Throat: hearing grossly normal, normal ENT inspection Neck: full range of motion, supple Respiratory: lungs clear, normal breath sounds, no respiratory distress, no accessory muscle use Cardiovascular/Chest: normal peripheral pulses, regular rate, rhythm, no edema Peripheral Pulses: radial,right: 2+, radial,left: 2+, dorsalis pedis,right: 2+, dorsalis pedis,left: 2+ Gastrointestinal/Abdominal: non tender, soft Rectal Exam: deferred Back Exam: normal inspection Extremity: normal range of motion, non-tender, normal inspection, no pedal edema , normal capillary refill Neurologic: engineering design manager II-XII nml as tested - chronic vision change, no motor/sensory deficits, alert, normal mood/affect, oriented x 3 Skin Exam: normal color Comments: Vital Signs - 24 hr 12/06/17 12/06/17 12/06/17 20:25 21:27 21:55 Temperature 97.5 F L Pulse Rate [ 75 60 60 MONITOR] Respiratory 18 16 16 Rate Blood Pressure 178/115 153/88 143/79 [RA] O2 Sat by Pulse 98 Oximetry Progress - Progress Progress: 12/06/17 22:01 the patient is a 62-year-old male presenting to the emergency room secondary to a headache. His headaches have been progressively getting worse and are assumed to be the result of an enlarging macroadenoma. He has no new neurological symptoms. This case was discussed with his neurosurgeon betty. The patient's headache has improved after pain medications and a dose of clonidine to bring down his blood pressure. He will he will be released to go home tonight. He is to contact his neurosurgeon's office tomorrow for further discussion of his management of this problem. He will be written for tramadol for as needed use. He may need to obtain stronger medication from his neurosurgeon or primary care doctor if the headaches continue to worsen. ER warnings were given for any worsening. Certainly if he develops any new neurological symptoms then imaging will be need to be performed sooner rather than waiting until his scheduled exam on Monday. Departure - Departure Clinical Impression: Pituitary macroadenoma Headache Qualifiers: Headache type: other headache syndrome Qualified Code(s): G44.89 - Other headache syndrome Disposition: Discharge to Home or Self Care Condition: Fair Departure Forms: ED Discharge - Pt. Copy, Patient Portal Self Enrollment Instructions: DI for Headache Diet: regular diet Activity: increase activity as tolerated Referrals: Donald Franz MD [Primary Care Provider] - 1-2 Weeks Prescriptions: Tramadol HCl 50 mg PO Q8HR PRN #20 tab PRN Reason: Headache/Migraine Pain Home Medications: Ambulatory Orders Apixaban [Eliquis] 5 mg PO BID 05/22/17 Atorvastatin Calcium [Lipitor] 20 mg PO DAILY 05/22/17 Carvedilol 25 mg PO BID 05/22/17 Multiple Vitamin [Multi Vitamin] 1 tab PO DAILY 05/22/17 Anastrozole [Arimidex] 1 mg PO DAILY 12/06/17 Losartan Potassium 50 mg PO DAILY 12/06/17 Tramadol HCl 50 mg PO Q8HR PRN #20 tab 12/06/17 Zolpidem Tartrate 10 mg PO BEDTIME 12/06/17 Additional Instructions: the patient is a 62-year-old male presenting to the emergency room secondary to a headache. His headaches have been progressively getting worse and are assumed to be the result of an enlarging macroadenoma. He has no new neurological symptoms. This case was discussed with his neurosurgeon betty. The patient's headache has improved after pain medications and a dose of clonidine to bring down his blood pressure. He will he will be released to go home tonight. He is to contact his neurosurgeon's office tomorrow for further discussion of his management of this problem. He will be written for tramadol for as needed use. He may need to obtain stronger medication from his neurosurgeon or primary care doctor if the headaches continue to worsen. ER warnings were given for any worsening. Certainly if he develops any new neurological symptoms then imaging will be need to be performed sooner rather than waiting until his scheduled exam on Monday.
[2017-12-06] MEDS ORDERED: HYDROmorphone HCL INJ 2 MG/ML VIAL IM ONE (20:31)
[2017-12-06] MEDS ORDERED: diazePAM 2 MG TAB PO ONE (20:31)
[2017-12-06] MEDS ORDERED: cloNIDine HCL 0.1 MG TAB PO ONE (20:33)
[2017-12-06 20:36] VITALS: TEMP 97.5; O2SAT 98
[2017-12-06 21:56] VITALS: BP 143/79
[2017-12-06] MEDS ORDERED: predniSONE 20 MG TAB PO ONE (21:57)
== END 2017-12-06 22:16 | disposition home or self-care (01) ==
LOC: ER 20:10
DX: R51 Headache (principal); D35.2 Benign neoplasm of pituitary gland; I11.0 Hypertensive heart disease with heart failure; I50.9 Heart failure, unspecified; Z95.0 Presence of cardiac pacemaker; Z87.891 Personal history of nicotine dependence; Z79.899 Other long term (current) drug therapy
CPT/HCPCS: J1170; J1885